=== PATIENT | female | born 1980 | race Caucasian/White ===

== ENCOUNTER 2020-04-13 15:52 | Observation (INO) ==
[2020-04-13] MEDS ORDERED: Ondansetron 4 mg VIAL 2 MG/ML 2 ml VIAL IV PRN (16:00)
[2020-04-13] MEDS ORDERED: Lactated Ringers 1000 ml BAG 1,000 ML IV SCH (16:00)
[2020-04-13] MEDS: HYDROmorphone 1 MG/1 ML SYRINGE IV SLOW PU PRN (17:03)
[2020-04-13 19:37] LABS: ABS Eosinophils 0.1 10^3/ul (0-0.6); ABS Lymphocytes 1.5 10^3/ul (1.0-4.8); ABS Monocytes 0.6 10^3/ul (0-0.8); Eosinophil % 1.1 %; Hematocrit 37 % (35-47); Hemoglobin 12.6 g/dL (12.0-16.0); Lymphocyte % 17.9 %; Mean Corpuscular HGB Conc 34 g/dL (31-36); Mean Corpuscular Hemoglobin 33 pg (27-31); Mean Corpuscular Volume 96 fL (80-97); Mean Platelet Volume 9.4 fL (7.4-10.4); Platelet Count 216 10^3/uL (150-450); Red Blood Count 3.88 10^6 /uL (3.70-4.87); Red Cell Distribution Width 13 % (10-15); White Blood Count 8.3 10^3/uL (3.5-10.8)
[2020-04-13] MEDS: NS 0.9% 1000 ml BAG 1,000 ML IV SCH (19:47)
[2020-04-13 19:49] LABS: Albumin 4.1 g/dL (3.2-5.2); Albumin/Globulin Ratio 1.6 (1-3); BUN/Creatinine Ratio 7.1 (8-20); Calcium 8.5 mg/dL (8.6-10.3); EGFR African American 89.2 (>60); EGFR Non-African American 73.7 (>60); Globulin 2.5 g/dL (2-4); Potassium 3.4 mmol/L (3.5-5.0); Total Bilirubin 0.4 mg/dL (0.2-1.0); Total Protein 6.6 g/dL (6.4-8.9)
[2020-04-13] MEDS: Piperacillin/Tazobactam VIAL 3.375 GM in NS 0.9% 100 ml BAG 100 ML IVPB SCH (20:28)
[2020-04-14] MEDS: Piperacillin/Tazobactam VIAL 3.375 GM in NS 0.9% 100 ml BAG 100 ML IVPB SCH ×3 (03:56→19:58)
[2020-04-14] MEDS: NS 0.9% 1000 ml BAG 1,000 ML IV SCH (05:28)
[2020-04-14] MEDS ORDERED: Bupivacaine 0.25% SDV 30 ML ONE (07:33)
[2020-04-14] MEDS ORDERED: Propofol 10 MG/ML 20 ML BTL ONE ×2 (07:51→09:11)
[2020-04-14] MEDS ORDERED: Lidocaine 0.5% SDV 50 ML VIAL ONE (07:51)
[2020-04-14] MEDS ORDERED: Midazolam 2 mg/2 ml VIAL 1 mg/ml 2 ml VIAL (2 mg) ONE (07:52)
[2020-04-14] MEDS ORDERED: fentaNYL 250 mcg/5 ml 50 MCG/ML 5 ml VIAL (250 MCG) ONE (07:52)
[2020-04-14] MEDS ORDERED: Rocuronium 50 mg VIAL 10 mg/ml 5 ml VIAL (50 mg) ONE (07:52)
[2020-04-14] MEDS ORDERED: Dexamethasone IV 4 MG/ML VIAL 1 ml VIAL ONE (08:50)
[2020-04-14] MEDS ORDERED: Ondansetron 4 mg VIAL 2 MG/ML 2 ml VIAL ONE (08:50)
[2020-04-14] MEDS ORDERED: HYDROmorphone 1 MG/1 ML SYRINGE ONE (09:04)
[2020-04-14] MEDS ORDERED: DiMENhydriNATE IV 50 mg/ml 1 ml VIAL ONE (09:05)
[2020-04-14] MEDS ORDERED: Acetaminophen IV 1 GM/100ML 100 ML ONE (09:06)
[2020-04-14] MEDS ORDERED: Naloxone 0.4 mg VIAL 0.4 mg/ml 1 ml VIAL IV PRN (10:26)
[2020-04-14] MEDS ORDERED: fentaNYL 100 mcg/2 ml 50 MCG/ML VIAL IV PRN (10:26)
[2020-04-14] MEDS ORDERED: Ondansetron 4 mg VIAL 2 MG/ML 2 ml VIAL IV PRN (10:26)
[2020-04-14] MEDS ORDERED: Levalbuterol 1.25MG/0.5ML NEB.SOL ONE (11:05)
[2020-04-14] MEDS ORDERED: Furosemide 40 mg/4 ml IV VIAL ONE (12:54)
[2020-04-14] MEDS ORDERED: Furosemide 40 mg/4 ml IV VIAL IV ONE (13:17)
[2020-04-14] MEDS ORDERED: Levalbuterol 1.25MG/0.5ML NEB.SOL INH ONE (13:18)
[2020-04-14 13:50] LABS: ABS Lymphocytes 0.3 10^3/ul (1.0-4.8); ABS Monocytes 0.1 10^3/ul (0-0.8); ABS Neutrophils 8.7 10^3/ul (1.5-7.7); Eosinophil % 0.1 %; Hematocrit 38 % (35-47); Hemoglobin 13.1 g/dL (12.0-16.0); Lymphocyte % 3.1 %; Mean Corpuscular HGB Conc 34 g/dL (31-36); Mean Corpuscular Hemoglobin 32 pg (27-31); Mean Corpuscular Volume 95 fL (80-97); Platelet Count 190 10^3/uL (150-450); Red Blood Count 4.05 10^6 /uL (3.70-4.87); Red Cell Distribution Width 13 % (10-15); White Blood Count 9.2 10^3/uL (3.5-10.8)
[2020-04-14 14:07] LABS: ALT 70 U/L (7-52); AST 78 U/L (13-39); Albumin 3.8 g/dL (3.2-5.2); Albumin/Globulin Ratio 1.4 (1-3); Alkaline Phosphatase 42 U/L (34-104); Anion Gap 8 mmol/L (2-11); BUN/Creatinine Ratio 7.1 (8-20); Blood Urea Nitrogen 6 mg/dL (6-24); C Reactive Protein 107.56 mg/L (<8.01); CO2 Carbon Dioxide 22 mmol/L (22-32); Chloride 108 mmol/L (101-111); EGFR African American 90.4 (>60); EGFR Non-African American 74.7 (>60); Globulin 2.7 g/dL (2-4); Glucose 126 mg/dL (70-100); Lipase < 10 U/L (11.0-82.0); Potassium 3.6 mmol/L (3.5-5.0); Sodium 138 mmol/L (135-145); Total Protein 6.5 g/dL (6.4-8.9)
[2020-04-14] MEDS: HYDROmorphone 1 MG/1 ML SYRINGE IV SLOW PU PRN ×4 (14:56→23:30)
[2020-04-14 15:10] LABS: Erythrocyte Sed Rate 28 mm/Hr (0-19)
[2020-04-14 19:47] LABS: Urine Appearance Clear; Urine Bilirubin Negative (Negative); Urine Blood Negative (Negative); Urine Color Yellow; Urine Glucose Negative (Negative); Urine Ketones 1+ (Negative); Urine Nitrite Negative (Negative); Urine Protein Negative (Negative); Urine Specific Gravity 1.011 (1.010-1.030); Urine Urobilinogen Negative (Negative)
[2020-04-15] MEDS: HYDROmorphone 1 MG/1 ML SYRINGE IV SLOW PU PRN (03:52)
[2020-04-15] MEDS: Piperacillin/Tazobactam VIAL 3.375 GM in NS 0.9% 100 ml BAG 100 ML IVPB SCH (03:54)
[2020-04-15] MEDS ORDERED: HYDROcodone/ACETAMIN 5/325 mg TAB PO PRN (09:15)
[2020-04-15 11:26] VITALS: BP 99/51
== END 2020-04-15 14:00 | disposition home or self-care (01) ==
LOC: ED 15:52 → SSU 15:52
PROVIDERS: ADMIT Surgery; ATTEND Surgery